=== PATIENT | female | born 1990 | race Caucasian/White ===

== ENCOUNTER 2018-03-26 22:22 | Emergency (ER) | payer OTHER ==
[~2018-03-26] VITALS: Ht 162.6 cm; Wt 126.1 kg
[2018-03-26 22:35] VITALS: BP_SYST 150
[2018-03-27] MEDS ORDERED: ACETAMINOPHEN 500 MG TABLET PO ONE (00:45)
[2018-03-27] MEDS ORDERED: KETOROLAC TROMETHAMINE 30 MG VIAL IM ONE (02:00)
[2018-03-27 02:32] VITALS: BP_SYST 144
== END 2018-03-27 02:32 | disposition home or self-care (01) ==
LOC: SED 22:22
DX: G44.82 Headache associated with sexual activity (principal); R03.0 Elevated blood-pressure reading, without diagnosis of hypertension; Z90.49 Acquired absence of other specified parts of digestive tract
CPT/HCPCS: 70450; 81025; 96372; 99284; J1885

== ENCOUNTER 2019-03-10 13:03 | Emergency (ER) | payer OTHER ==
[~2019-03-10] VITALS: Ht 162.6 cm; Wt 115.7 kg
[2019-03-10 13:03] VITALS: BP_SYST 126
--- NOTE | 2019-03-10 13:10 | NUR ---
BROUGHT BACK TO BED #4 AND TRIAGED. REPORT GIVEN TO SCOTT
--- NOTE | 2019-03-10 13:20 | NUR ---
ALEXANDER Dean at bedside examining patient.
[2019-03-10] MEDS ORDERED: cefTRIAXone 1 GM IVPB PREMIX 50 ML IV ONE (13:30)
[2019-03-10] MEDS ORDERED: NACL 0.9% 1,000 ML IV ONE (13:30)
[2019-03-10] MEDS ORDERED: KETOROLAC TROMETHAMINE 30 MG VIAL IVP ONE (13:30)
[2019-03-10] MEDS ORDERED: AZITHROMYCIN 250 MG TABLET PO ONE (13:30)
[2019-03-10] MEDS ORDERED: ONDANSETRON HCL 4 MG/2 ML VIAL IVP ONE (13:30)
--- NOTE | 2019-03-10 13:30 | NUR ---
pt arrives from homw w/ c/o of pelvic pain. Pt does report having unprotected sex w/ a new partner. Pt denies any febrile or N/V
--- NOTE | 2019-03-10 13:45 | NUR ---
# 22 gauge angiocath placed to ;eft hand. Use of asceptic technique. Opsite placed over site. Blood return noted. Blood for lab drawn from site. Flushed with 10 cc of normal saline. No evidence of infiltration noted. Patient tolerated well.
[2019-03-10 13:46] LABS: BASOPHILS # (AUTO) 0.1 K/uL (0.0-0.2); BASOPHILS % (AUTO) 0.4 % (0.0-2.0); EOSINOPHILS % (AUTO) 0.2 % (0.0-4.0); HEMATOCRIT 41.7 % (36-48); HEMOGLOBIN 14.2 g/dL (12.0-16.0); LYMPHOCYTES # (AUTO) 1.2 K/uL (1.0-5.5); LYMPHOCYTES % (AUTO) 10.5 % (20.5-51.5); MEAN CORPUSCULAR HEMOGLOBIN 32 pg (27-31); MEAN CORPUSCULAR HGB CONC 34 % (32-36); MEAN CORPUSCULAR VOLUME 93 fL (79.0-98.0); MONOCYTES # (AUTO) 0.7 K/uL (0.0-1.0); MONOCYTES % (AUTO) 6.1 % (1.7-9.3); NEUTROPHILS # (AUTO) 9.3 K/uL (1.8-7.7); NEUTROPHILS % (AUTO) 82.8 % (40.0-70.0); PLATELET COUNT (AUTO) 235 K/uL (130-430); WHITE BLOOD COUNT (AUTO) 11.2 K/uL (4.8-10.8)
--- NOTE | 2019-03-10 13:50 | NUR ---
medicated the pt w/ Toradol, Zofran, and Rocephin per MD order. Will continue to montior
[2019-03-10 13:55] LABS: CALCIUM 8.8 mg/dL (8.4-11.0); CREATININE 0.95 mg/dL (0.55-1.30); POTASSIUM 3.2 mmol/L (3.5-5.1)
[2019-03-10 14:10] LABS: ALBUMIN 3.5 g/dL (3.4-4.8); TOTAL BILIRUBIN 1.1 mg/dL (0.0-1.0)
[2019-03-10 14:11] LABS: BILIRUBIN,URINE NEGATIVE (NEGATIVE); BLOOD, URINE 3+ (NEGATIVE); CLARITY/URINE CLOUDY (CLEAR); COLOR,URINE ORANGE (YELLOW); GLUCOSE,URINE NEGATIVE (NEGATIVE); KETONES,URINE 1+ (NEGATIVE); LEUKOCYTE ESTERASE ,URINE NEGATIVE (NEGATIVE); NITRITE, URINE POSITIVE (NEGATIVE); PH,URINE 6.5 (5.0-8.0); PROTEIN URINE 2+ (NEGATIVE)
[2019-03-10 14:35] LABS: BACTERIA,URINE FEW /HPF (None Seen); MUCUS,URINE 1+ /LPF (None Seen); RBC,URINE >100 /HPF (0-3)
--- NOTE | 2019-03-10 14:36 | NUR ---
TAKEN TO RADIOLOGY VIA WHEELCHAIR
[2019-03-10] MEDS ORDERED: PENICILLIN G BENZATHINE 1.2 MMU/2 ML SYR IM ONE (15:30)
--- NOTE | 2019-03-10 15:40 | NUR ---
pt returned fom US
--- NOTE | 2019-03-10 16:00 | NUR ---
Patient given written and verbal discharge instructions and verbalizes understanding. ER MD discussed with patient the results and treatment provided. Patient in stable condition. ID arm band removed. IV catheter removed intact and dressing applied, no active bleeding. Rx of Zofarn, macrodid given. Patient educated on pain management and to follow up with PMD. Pain Scale 3/10.Opportunity for questions provided and answered. Medication side effect fact sheet provided.
[2019-03-10 16:10] VITALS: BP_SYST 126
[2019-03-12 18:26] LABS: CHLAMYDIA TRACHOMATIS NAA Negative (Negative); NEISSERIA GONORRHOEAE NAA Negative (Negative)
== END 2019-03-10 16:15 | disposition home or self-care (01) ==
LOC: SED 13:03
DX: N39.0 Urinary tract infection, site not specified (principal); J02.0 Streptococcal pharyngitis; B95.0 Streptococcus, group A, as the cause of diseases classified elsewhere; D72.829 Elevated white blood cell count, unspecified; F12.90 Cannabis use, unspecified, uncomplicated; F17.200 Nicotine dependence, unspecified, uncomplicated; Z71.6 Tobacco abuse counseling; Z72.89 Other problems related to lifestyle; Z72.51 High risk heterosexual behavior
CPT/HCPCS: 36415; 76830; 76857; 80053; 81000; 81025; 84702; 85025; 86403; 87040; 87086; 87210; 87491; 87591; 96365; 96375; 99284; J0561; J0696; J1885; J2405; Q0144